=== PATIENT | male | born 1970 | race Caucasian/White ===

== ENCOUNTER 2019-06-07 15:39 | Emergency (ER) | payer BC ==
[~2019-06-07] VITALS: Ht 185.4 cm; Wt 75.0 kg
[2019-06-07 15:41] VITALS: BP 114/64
== END 2019-06-07 16:29 | disposition left against medical advice (07) ==
LOC: ER 15:39
DX: Z53.21 Procedure and treatment not carried out due to patient leaving prior to being seen by health care provider (principal)